=== PATIENT | female | born 1940 | race Caucasian/White ===

== ENCOUNTER 2017-02-09 20:42 | Emergency (ER) | payer MEDICAID, MEDICARE ==
[~2017-02-09] VITALS: Ht 160 cm; Wt 71.9 kg
[2017-02-09] MEDS ORDERED: BACL20TA PO (20:58)
[2017-02-09] MEDS ORDERED: FURO-93 PO (20:58)
[2017-02-09] MEDS ORDERED: DOCU100C33 PO (20:58)
[2017-02-09 22:28] VITALS: BP 116/76
== END 2017-02-09 22:36 | disposition home or self-care (01) ==
LOC: ED 22:17
DX: R41.0 Disorientation, unspecified (principal); R06.00 Dyspnea, unspecified; F41.1 Generalized anxiety disorder; I10 Essential (primary) hypertension; J44.9 Chronic obstructive pulmonary disease, unspecified; F17.200 Nicotine dependence, unspecified, uncomplicated; Z88.0 Allergy status to penicillin
CPT/HCPCS: 93005; 99283